=== PATIENT | male | born 1980 | race Caucasian/White ===

== ENCOUNTER 2018-12-09 09:26 | Outpatient (CLI) | payer MEDICAID, SELFPAY ==
[2018-12-09 11:16] LABS: HCT 44.5 % (40.0-50.0); HGB 15.3 g/dL (13.5-17.5); Mean Corp. HGB Concentration 34.4 g/dL (32.0-36.0); Mean Corpuscular Hemoglobin 31.9 pg (27.0-33.0); Mean Corpuscular Volume 92.7 fL (80-95); Platelet Count 317 x1000/uL (130-400); RBC Distribution Width 12.3 % (11.8-14.1); White Blood Cell Count 4.77 k/cumm (4.4-10.8)
[2018-12-09 11:17] LABS: Absolute Basophil Count 0.02 k/cumm (0.0-0.2); Absolute Eosinophil Count 0.09 k/cumm (0.0-0.7); Absolute Lymphocyte Count 1.04 k/cumm (1.2-3.4); Absolute Monocyte Count 0.41 k/cumm (0.11-0.7); Absolute Neutrophil Count 3.21 k/cumm (1.2-6.7); Basophils % 0.4; Eosinophils % 1.9; Lymphocytes % 21.8; Mean Platelet Volume 10.8 fL (8.0-11.0); Monocytes % 8.6; Neutrophils % 67.3
[2018-12-09 11:30] LABS: ALT 25 U/L (12-78); AST 13 U/L (15-37); Albumin 4.1 g/dL (3.4-5.0); Alkaline Phosphatase 75 U/L (46-116); Anion Gap 8.7 mmol/L (3-11); BUN 9 mg/dL (7-18); Bilirubin, Direct 0.12 mg/dL (0.00-0.20); Bilirubin, Total 0.6 mg/dL (0.2-1.0); CO2 29.3 mmol/L (21.0-32.0); CREATININE 0.77 mg/dL (0.70-1.30); Calcium 9.2 mg/dL (8.5-10.1); Chloride 104 mmol/L (98-107); Glucose 95 mg/dL (70-100); Potassium 4.3 mmol/L (3.5-5.1); Sodium 142 mmol/L (136-145); Total Protein 7.1 g/dL (6.4-8.2)
== END 2018-12-09 09:46 ==
PROVIDERS: PCP Family Medicine; Visit Provider Family Medicine
DX: B35.1 Tinea unguium (principal)
CPT/HCPCS: 36415; 80053; 80076; 85025

== ENCOUNTER 2019-02-04 11:03 | Outpatient (CLI) | payer MEDICAID, SELFPAY ==
[2019-02-04 12:32] LABS: Abs Immature Grans 0.01 k/cumm (0.0-0.09); Absolute Basophil Count 0.01 k/cumm (0.0-0.2); Absolute Eosinophil Count 0.02 k/cumm (0.0-0.7); Absolute Lymphocyte Count 0.81 k/cumm (1.2-3.4); Absolute Monocyte Count 0.94 k/cumm (0.11-0.7); Basophils % 0.1; Eosinophils % 0.2; HCT 43.4 % (40.0-50.0); HGB 14.6 g/dL (13.5-17.5); Immature Grans % 0.1; Lymphocytes % 6.8; Mean Corp. HGB Concentration 33.6 g/dL (32.0-36.0); Mean Corpuscular Hemoglobin 30.7 pg (27.0-33.0); Mean Corpuscular Volume 91.4 fL (80-95); Mean Platelet Volume 10.5 fL (8.0-11.0); Monocytes % 7.9; Neutrophils % 84.9; Platelet Count 373 x1000/uL (130-400); RBC 4.75 m/cumm (4.50-6.00); RBC Distribution Width 13.3 % (11.8-14.1); White Blood Cell Count 11.95 k/cumm (4.4-10.8)
[2019-02-04 12:35] LABS: Absolute Neutrophil Count 10.15 k/cumm (1.2-6.7)
[2019-02-04 13:34] LABS: ALT 25 U/L (16-63); AST 11 U/L (15-37); Albumin 4.3 g/dL (3.4-5.0); Alkaline Phosphatase 67 U/L (46-116); Bilirubin, Direct 0.13 mg/dL (0.00-0.20); Bilirubin, Total 0.5 mg/dL (0.2-1.0); Total Protein 7.5 g/dL (6.4-8.2)
== END 2019-02-04 11:23 ==
PROVIDERS: PCP Family Medicine; Visit Provider Family Medicine
DX: B35.1 Tinea unguium (principal)
CPT/HCPCS: 36415; 80076; 85025

== ENCOUNTER 2019-04-14 08:09 | Outpatient (CLI) | payer MEDICAID, SELFPAY ==
[2019-04-14 11:11] LABS: Abs Immature Grans 0.01 k/cumm (0.0-0.09); Absolute Basophil Count 0.02 k/cumm (0.0-0.2); Absolute Eosinophil Count 0.07 k/cumm (0.0-0.7); Absolute Lymphocyte Count 1.15 k/cumm (1.2-3.4); Absolute Monocyte Count 0.33 k/cumm (0.11-0.7); Absolute Neutrophil Count 2.48 k/cumm (1.2-6.7); Basophils % 0.5; Eosinophils % 1.7; HCT 41.9 % (40.0-50.0); Immature Grans % 0.2; Lymphocytes % 28.3; Mean Corp. HGB Concentration 33.4 g/dL (32.0-36.0); Mean Corpuscular Hemoglobin 30.8 pg (27.0-33.0); Mean Corpuscular Volume 92.1 fL (80-95); Mean Platelet Volume 10.2 fL (8.0-11.0); Monocytes % 8.1; Neutrophils % 61.2; Platelet Count 338 x1000/uL (130-400); RBC 4.55 m/cumm (4.50-6.00); RBC Distribution Width 13.5 % (11.8-14.1); White Blood Cell Count 4.06 k/cumm (4.4-10.8)
[2019-04-14 12:12] LABS: ALT 54 U/L (16-63); AST 20 U/L (15-37); Alkaline Phosphatase 69 U/L (46-116); Bilirubin, Direct 0.12 mg/dL (0.00-0.20); Bilirubin, Total 0.5 mg/dL (0.2-1.0); Total Protein 6.8 g/dL (6.4-8.2)
== END 2019-04-14 08:29 ==
PROVIDERS: PCP Family Medicine; Visit Provider Family Medicine
DX: B35.1 Tinea unguium (principal); Z51.81 Encounter for therapeutic drug level monitoring
CPT/HCPCS: 36415; 80076; 85025

== ENCOUNTER 2021-09-13 03:33 | Outpatient (CLI) | payer MEDICAID, SELFPAY ==
--- NOTE | 2021-09-13 06:45 | DI.MRI_ITS ---
Exam(s) MR LOWER JOINT RT WO/W EXAM: MR LOWER JOINT RT WO/W CLINICAL HISTORY: mass rt ankle,r22.41. TECHNIQUE: Multiplanar multisequence MRI was performed. CONTRAST MATERIAL: IV Contrast: 16 mL of Dotarem contrast administered. COMPARISON: None. FINDINGS: BONES/JOINTS: No fracture or contusion pattern. No bone lesions identified. The talar dome is smooth. The ankle mortise is maintained. No joint effusion is present. LIGAMENTS: The tibiofibular and calcaneofibular ligaments are intact. The talofibular ligaments are i ntact. The deltoid ligament is intact. The syndesmosis is unremarkable. Sinus tarsi is normal. MUSCULOTENDINOUS STRUCTURES: Achilles tendon: Unremarkable. Plantar fascia: Unremarkable. Anterior Extensor tendons: Unremarkable. Posterior Tibialis: Unremarkable. Flexor Digitorum longus: Unremarkable. Flexor Hallucis longus: Unremarkable. Peroneus longus: Unremarkable. Peroneus brevis:Unremarkable. SOFT TISSUES: There is a 0.4 cm AP x 0.9 cm transverse by 0.9 cm craniocaudad subcutaneous mass corre sponding to the palpable abnormality. It is hyperintense on the T2 weighted images and isointense to the muscle on the T1 weighted images. It shows homogeneous enhancement following contrast administr ation. The mass is superficial to the Achilles tendon. It appears separate from the tendon and in t he surrounding musculature. It lies wholly in the subcutaneous tissues. No other soft tissue masses are seen. OTHER FINDINGS: None. ENHANCEMENT: Please see the soft tissue section. IMPRESSION: 0.4 x 0.9 x 0.9 cm subcutaneous mass superficial to the Achilles tendon corresponding to the palpable abnormality. There is no infiltration of the underlying tendon muscle or bone. No other masses are appreciated. The finding is nonspecific and may reflect benign and malignant causes including fibro matosis or possible sarcoma. Biopsy may be considered for further evaluation. DATA REPOSITORY:
[2021-09-13] MEDS: Normal Saline Flush 10 ML SYR IVP (08:32)
[2021-09-13] MEDS: Gadoterate meglumine 20 ML VIAL 16 ML IVP (08:33)
== END 2021-09-13 03:53 ==
PROVIDERS: PCP Family Medicine; Visit Provider Student in an Organized Health Care Education/Training Program
DX: R22.41 Localized swelling, mass and lump, right lower limb (principal)
CPT/HCPCS: 73723

== ENCOUNTER 2021-09-26 02:36 | Outpatient (CLI) | payer MEDICAID, SELFPAY ==
[2021-09-26 12:02] LABS: Source Nasal/Nares
[2021-09-26 14:13] LABS: COVID-19 PCR Negative (Negative)
== END 2021-09-26 02:37 | disposition home or self-care (01) ==
LOC: LBO 02:37
PROVIDERS: PCP Family Medicine; Visit Provider Student in an Organized Health Care Education/Training Program
DX: Z20.822 Contact with and (suspected) exposure to COVID-19 (principal); Z01.818 Encounter for other preprocedural examination
CPT/HCPCS: 87635

== ENCOUNTER 2021-09-27 11:17 | Day surgery (SDC) | payer MEDICAID, SELFPAY ==
[2021-09-27 11:36] VITALS: BP 111/71; PULSE 72; RESP 17; TEMP 36.9; O2SAT 97
--- NOTE | 2021-09-27 11:48 | W.ANESPRE ---
General Info Date of Service Date Performed: 09/27/21 Height: 5 ft 9 in Weight: 82.4 kg Body Mass Index (BMI): 26.8 Surgical Procedure: Operation Date: 09/27/21 15:10 Proposed Procedure Side Surgeon p Excisional Bx Rt Posterior Leg Right Mane Ladd MD Meds Allergies and Home Medications Allergies Allergy/AdvReac Type Severity Reaction Status Date / Time No Known Allergies Allergy Verified 09/27/21 11:41 Home Medication Medication Instructions Recorded Unknown [No Known Home Meds] 06/24/21 Current Visit Medications: Current Medications Generic Name Dose Route Start Last Admin Trade Name Freq PRN Reason Stop Dose Admin Ringer's Solution 1,000 mls @ 80 mls/hr 09/27/21 06:00 IV 10/08/21 23:59 INFUSION СЕРГЕЙ Cefazolin Sodium/Dextrose 2 gm in 50 mls @ 100 mls/hr 09/27/21 06:00 Ancef Duplex IVPB 09/27/21 23:59 PREOP СЕРГЕЙ IV Miscellaneous Supplies 1 each 09/27/21 06:00 Iv Access IV 10/08/21 23:59 DIRECTED СЕРГЕЙ Sodium Chloride 0 ml 09/27/21 06:00 Normal Saline Flush 10 Ml Syr IV 10/08/21 23:59 PRN PRN Sodium Chloride 0 ml 09/27/21 06:00 Normal Saline 10 Ml Vial IJ 10/08/21 23:59 DIRECTED PRN Sterile Water 0 ml 09/27/21 06:00 Water,Injection,Sterile 10 Ml Vial IJ 10/08/21 23:59 DIRECTED PRN PFSH Active Problems Active Problems: Problem Status Onset Code Laceration of left lower extremity S81.812A Mass of right lower extremity R22.41 Mass of right lower leg R22.41 Onychomycosis B35.1 Surgical History Surgical History Removal of foreign body (02/05/18) plywood splinter from palm of left hand Tobacco Smoking/Tobacco Use Status: Never Alcohol Alcohol Intake: never Substance Use Substance use: Never Substance use type: does not use Vital Signs and Lab Results Vital Signs Most Recent Vital Signs in EMR: Most Recent Vital Signs Temp Pulse Resp BP Pulse Ox 36.9 C 72 17 111/71 97 09/27/21 11:36 09/27/21 11:36 09/27/21 11:36 09/27/21 11:36 09/27/21 11:36 Lab Results Blood Type / Crossmatch: No Data to Display Complete Blood Count: No Data to Display Complete Metabolic Panel: No Data to Display Liver Function Panel: No Data to Display Coagulation Panel: No Data to Display Cardiac Panel: No Data to Display Arterial Blood Gas: No Data to Display Venous Blood Gas: No Data to Display Pancreas Panel: No Data to Display Thyroid Panel: No Data to Display Infectious Disease: Coronavirus (COVID-19)(PCR) Negative (Negative) 09/26/21 08:55 09/26/21 Coronavirus 2019 Source Nasal/Nares 09/26/21 08:55 09/26/21 Blood Cultures: No Data to Display Toxicology Panel: No Data to Display Anesthesia Assessment and Plan Anesthesia History Personal History: No History of Anesthesia Complications Family History: No Family History of Anesthesia Complications Exercise Tolerance Exercise Tolerance: Metabolic Equivalents>4 Pertinent Negatives Pertinent Negatives: No Symptoms of GERD, No Major Cardiovascular Symptoms or Complaints and No Major Pulmonary Symptoms or Complaints Cardiac & Pulmonary Exam Cardiac Exam: Normal S1/S2 Heart Sounds Pulmonary Exam: Clear Bilateral Breath Sounds Implantable Cardiac Device Does patient have a Pacemaker or an ICD?: No Airway Exam Known Difficult Airway: No Mallampati Class: 1 Mouth Opening: Normal (> 3cm) Thyromental Distance: Greater than 3 cm Neck Range of Motion: Full ROM Neck Circumference: Normal Teeth Condition: Normal Dentition ASA Classification ASA Score: ASA 1 Emergency Case?: No NPO Status NPO Status: NPO Clears >2 hours, Solids >8 hours Anesthesia Plan Resuscitation Status: Full Code Anesthesia Technique: General Anesthesia Airway Planned: Natural Airway Monitors Used: Standard Monitors
[2021-09-27 11:51] VITALS: BMI 26.8
[2021-09-27] MEDS: Lactated Ringers 1,000 ML 80 ML IV (11:51)
--- NOTE | 2021-09-27 12:28 | W.PM.DSUDISC ---
Discharge Plan Disposition Patient Disposition: HOME Condition: Stable Discharge Details Reason For Visit: Right Lower leg mass excision Attending Provider: Mane Ladd Primary Care Provider: Ria Ortega Home Meds and New Rx's Prescriptions: New acetaminophen 500 mg capsule 1,000 mg PO Q8H PRN PRNQty: 30 0RF hydrocodone-acetaminophen 5-325 mg tablet 1 tab PO Q6H PRNQty: 5 0RF ibuprofen 600 mg tablet 600 mg PO TID Qty: 30 0RF Discharge Instructions Additional Instructions: Discharge Instructions Activity: You may weight bear as tolerated. You should keep the leg elevated as much as possible. Dressings: You should keep the initial dressing on for at least 3 days. After 3 days, you may remove it and get it wet in the shower. You should keep it covered with a light gauze dressing or wrap until follow-up. Medications: - You should take Tylenol and Ibuprofen around the clock for baseline pain. - You have been prescribed a stronger narcotic, Hydrocodone, for breakthrough pain. Follow-up: 2 weeks Referrals: Mane Ladd MD [ [facility] STAFF PHYSICIAN] - Equipment/Supplies: Partial Weight Bearing Crutches Activity:: Activity as Tolerated Remove Dressings/Wound Care:: 72 hours Shower/Bathe:: 72 hours Diet:: As Tolerated Discharge Orders Discharge Orders: Discharge Order (Routine); Ordered 09/27/21 Ordered By: Zulay Blum DS: Diagnosis Discharge Diagnosis (1) Mass of right lower extremity: Status: Acute
[2021-09-27] MEDS: ceFAZolin 2 GM/50 ML BAG IVPB (13:13)
[2021-09-27] MEDS: Bupivacaine 0.25% Pres-Free 30 ML VIAL (13:18)
--- NOTE | 2021-09-27 13:18 | SKI_PTH ---
PATIENT: Jonny Zavaleta LOC: [facility] U#:[id number] AGE/SX: 41/M ROOM: RE09/27/[address]: Mane Ladd MD : 1980 BED: DIS: 09/27/2021 SPEC #: [id number] RECD: 09/27/21 18:07 STATUS: JOHNSON REDavid #: [id number] LAWANDA: 09/27/21 13:[address]: Mane Ladd DEPT: Surgical Specimen RECD BY: Nuha Peters ENTERED: 09/27/21 18:08 SP TYPE: MARII CARTAGENA DR: Ria Ortega Tissues: 1 - SKIN BIOPSY(SHAVE/PUNCH) Procedures: GROSS AND MICRO LEVEL 4 IMMUNOPEROXIDASE STAIN Comments: [id number]
[2021-09-27 13:35] VITALS: BP 100/61; PULSE 83; RESP 18; TEMP 36.6; O2SAT 93
--- NOTE | 2021-09-27 14:03 | W.ANESPOSTOP ---
Postoperative Evaluation Date, Time and Location Date Performed: 09/27/21 Time Performed: 14:04 Patient Location: Day Surgery Unit Vital Signs Most Recent Imported Vital Signs: Most Recent Vital Signs Temp Pulse Resp BP Pulse Ox 36.6 C 83 18 100/61 93 09/27/21 13:35 09/27/21 13:35 09/27/21 13:35 09/27/21 13:35 09/27/21 13:35 Pain Score Most Recent Pain Score: Most Recent Pain Score Pain Level 0 09/27/21 13:35 Assessment Mental Status: Awake (Alert & Oriented to Patient Baseline) Airway and Respiratory Function: Patent airway with normal (patient baseline) respiratory exam Cardiovascular Function: Hemodynamically Stable Hydration Status: Adequately Hydrated Nausea & Vomiting: No Nausea or Vomiting Pain: Pt. Denies Any Pain Peripheral Nerve Block: Patient did not receive a nerve block
[2021-09-27 14:05] VITALS: BP 105/72; PULSE 68; RESP 16; TEMP 36.1; O2SAT 95
--- NOTE | 2021-09-27 21:37 | ROE_ITS ---
Date of service: 09/27/21 Time of Service: 14:30 Operative Note Operative Note DATE OF PROCEDURE: 09/27/21 PRE-OP DIAGNOSIS: Right posterior leg mass PROCEDURE: Excisional biopsy of right posterior leg mass SURGEON: Mane Ladd ANESTHESIA TYPE: General:No Airway Refer to Anesthesia Record ESTIMATED BLOOD LOSS: 0 PATHOLOGY: other (Rounded 1 cm mass sent to pathology) TOURNIQUET TIME: 0 COMPLICATIONS: None Indications: Jonny is a 41-year-old who has had a mass about the posterior aspect of his right leg. It has been present for some time and continues to bother. Does cause pain with direct pressure. MRI showed that it was benign in its appearance, above the fascia, small, without surrounding reactive changes. Therefore, I offered an excisional biopsy. I reviewed the risk of the procedure to include bleeding, infection, pain, stiffness, recurrence, need for repeat procedures. Despite these risk, he elects to proceed. Findings: There is a suprafascial rounded structure identified adjacent to the Achilles. Did not have any deep extensions. It did appear cystic in nature although it felt solid. It was pathology. Procedure Description: Jonny was greeted in the preoperative holding area. His identity was confirmed the correct side was identified and marked. The consent was reviewed the patient and signed. He was taken back to the operating room and placed on the right lateral decubitus position on the hospital stretcher. Prophylactic antibiotics in the form of cefazolin were administered. Timeout was performed for safe surgery. The area for biopsy was prepped with ChloraPrep. Sterile draping was then utilized to square this area. The proposed surgical site was drawn on the skin centered over the mass, based on palpation. I then anesthetized the area with a 50-50 mixture of 0.5% bupivacaine along with 2% lidocaine with epinephrine. A 3 cm longitudinal incision was then made overlying the mass. Sharp dissection was carried onto the skin only. Immediately deep to the skin there was a cystic type structure identified by clear, translucent membrane. Careful dissection was carried around this area into the deeper fatty tissues until I was completely around this mass. I then utilized some adventitial tissue to mobilize the mass and release it from any deeper attachments. It was rounded and about 1 cm diameter. It had a clear translucent membrane but did not seem to completely cystic and that it felt more solid in nature. I was able to d issected out and there is no extensions of this in any of the deeper layers. It was removed in whole and then sent to pathology. Any superficial bleeding was cauterized with bipolar electrocautery. The wound was irrigated. The deep tissue was closed with interrupted 3-0 Vicryl sutures in a buried fashion. The skin was closed with a running 4-0 Monocryl in a subcuticular fashion reinforced with skin glue and covered with a Mepilex silver dressing. All counts are correct. He is awake from his anesthesia and transferred back onto the supine position of the hospital stretcher. He had no noted complications.
== END 2021-09-27 14:38 | disposition home or self-care (01) ==
PROVIDERS: PCP Family Medicine; Visit Provider Student in an Organized Health Care Education/Training Program
PROC: (CPT 11401; principal; 2021-09-27 15:00)
DX: D21.21 Benign neoplasm of connective and other soft tissue of right lower limb, including hip
CPT/HCPCS: 11401; 12031; 88305; 88361; J0690; J1885; J2250; J2405; J2704

== ENCOUNTER 2024-03-27 03:08 | Outpatient (CLI) | payer MEDICAID, SELFPAY ==
[2024-03-27 12:49] LABS: ALT 31 U/L (16-63); AST 13 U/L (15-37); Albumin 4.2 g/dL (3.4-5.0); Alkaline Phosphatase 57 U/L (46-116); Bilirubin, Direct 0.1 mg/dL (0.0-0.2); Total Protein 7.7 g/dL (6.4-8.2)
== END 2024-03-27 03:09 | disposition home or self-care (01) ==
LOC: LOS 03:08
PROVIDERS: PCP Family Medicine; Visit Provider Family Medicine
DX: B35.1 Tinea unguium (principal)
CPT/HCPCS: 36415; 80076